=== PATIENT | female | born 1960 | race Caucasian/White ===

== ENCOUNTER 2021-03-20 15:38 | Inpatient (IN) | payer OTHER ==
[~2021-03-20] VITALS: Ht 162.6 cm; Wt 62.0 kg
--- NOTE | 2021-03-20 15:49 | NUR ---
PT C/O OF GENERALIZED WEAKNESS FOR PAST MONTH AND RECENTLY BECAME INCONTINENT. PT HAD UTI 3 WEEKS AGO AND NON COMPLIANT WITH MEDICATIONS. PT POOR HISTORIAN, AND TAKES TIME TO REPLY. EKG AT BEDSIDE. ATTACHED TO MONOTORS. NADN. A&0X4. BREATHING EVEN AND UNLABORED. BED IN LOW, RAILS ENGAGED. CALL LIGHT ON LAP. TM
--- NOTE | 2021-03-20 16:01 | NUR ---
PT CLEANSED AND CHANGED INTO BREIF. PT CAME INTO ER WITH URINATED UNDERWEAR.
--- NOTE | 2021-03-20 16:07 | NUR ---
PT AND FAMILY CAME IN. PT STATES PT HAS NOT BEEN EATING AND VOMITS AFTER EACH MEAL. PT STATES PT HAS NOT VOMITTING IN 5 DAYS BUT IS BARELY EATING AND ABLE TO HANDLE SOFT FOODS AGAIN. PT APPEARS WEAK, HAS TROUBLE KEEPING LEGS IN AIR.
[2021-03-20 16:28] LABS: BASOPHILS % (AUTO) 0 % (0-1); EOSINOPHILS % (AUTO) 0 % (1-7); LYMPHOCYTES % (AUTO) 28 % (22-44); MEAN CORPUSCULAR HEMOGLOBIN 27.7 pg (27.0-34.8); MEAN CORPUSCULAR HGB CONC 33.9 g/dL (32.4-35.8); MEAN PLATELET VOLUME 9.9 fL (7.4-10.4); MONOCYTES % (AUTO) 19 % (2-9); NEUTROPHILS % (AUTO) 53 % (42-75); PLATELET COUNT 119 x10^3/uL (130-400); RED BLOOD COUNT 5.78 x10^6/uL (3.82-5.3); RED CELL DISTRIBUTION WIDTH 15.8 % (9.6-15.2)
[2021-03-20] MEDS ORDERED: SODIUM CHLORIDE FLUSH 10ML SYR IVF ONE (16:30)
[2021-03-20] MEDS ORDERED: SODIUM CHLORIDE 0.9% 1,000ML IVBOLUS ONE (16:30)
[2021-03-20 16:37] LABS: ALANINE AMINOTRANSFERASE 37 U/L (12-78); ALBUMIN 3.7 g/dL (3.4-5.0); ANION GAP 13 mmol/L (5-15); CALCIUM 10.1 mg/dL (8.5-10.1); CHLORIDE 99 mmol/L (98-107); CREATININE 0.88 mg/dL (0.55-1.02)
[2021-03-20 16:40] LABS: ALKALINE PHOSPHATASE 85 U/L (45-117); TOTAL PROTEIN 8.1 g/dL (6.4-8.2)
[2021-03-20 17:12] LABS: MICROSCOPIC AUTO
[2021-03-20] MEDS ORDERED: POTASSIUM CHLORIDE 20 MEQ PACKET ONE (17:20)
[2021-03-20] MEDS ORDERED: MAGNESIUM SULFATE 1 GM in SODIUM CHLORIDE 0.9% 50 ML IV ONE (17:30)
[2021-03-20] MEDS ORDERED: POTASSIUM CHLORIDE 20 MEQ PACKET PO ONE (17:30)
[2021-03-20] MEDS ORDERED: NS + 40MEQ KCL 1,000 ML IV ONE (18:02)
[2021-03-20] MEDS ORDERED: ONDANSETRON ODT 4 MG PO PRN (18:30)
[2021-03-20] MEDS ORDERED: MAGNESIUM SULFATE/D5W 100 ML IVPB ONE (18:30)
[2021-03-20] MEDS ORDERED: ONDANSETRON 2MG/ML, 2ML IVPush PRN (18:30)
[2021-03-20] MEDS ORDERED: KETOROLAC 30 MG/1 ML IM PRN (18:30)
[2021-03-20] MEDS ORDERED: POTASSIUM CHLORIDE 40 MEQ in SODIUM CHLORIDE 0.9% 1,000 ML IV ONE (18:30)
[2021-03-20] MEDS ORDERED: SODIUM CHLORIDE FLUSH 10ML SYR IVF PRN (18:30)
--- NOTE | 2021-03-20 18:42 | NUR ---
gave eport to presley rothman
[2021-03-20] MEDS ORDERED: LISI-167 PO (18:46)
[2021-03-20] MEDS ORDERED: CETI10CA PO (18:46)
[2021-03-20] MEDS: ENOXAPARIN 40 MG/0.4 ML SQ SCH (22:04)
[2021-03-20 22:22] VITALS: BP 116/84
[2021-03-20 22:30] VITALS: BP 115/81
[2021-03-21 01:30] VITALS: BP 152/86
[2021-03-21 01:35] VITALS: BP 165/83
[2021-03-21 05:41] LABS: MICROSCOPIC NOT IND
[2021-03-21 05:59] LABS: ALANINE AMINOTRANSFERASE 28 U/L (12-78); ALBUMIN 3.3 g/dL (3.4-5.0); ANION GAP 5 mmol/L (5-15); BASOPHILS % (AUTO) 0 % (0-1); CALCIUM 9.2 mg/dL (8.5-10.1); CHLORIDE 109 mmol/L (98-107); CREATININE 0.59 mg/dL (0.55-1.02); EOSINOPHILS % (AUTO) 0 % (1-7); LYMPHOCYTES % (AUTO) 33 % (22-44); MEAN CORPUSCULAR HEMOGLOBIN 27.4 pg (27.0-34.8); MEAN CORPUSCULAR HGB CONC 33.2 g/dL (32.4-35.8); MEAN PLATELET VOLUME 10.9 fL (7.4-10.4); MONOCYTES % (AUTO) 14 % (2-9); NEUTROPHILS % (AUTO) 53 % (42-75); PLATELET COUNT 106 x10^3/uL (130-400); RED BLOOD COUNT 5.09 x10^6/uL (3.82-5.3); RED CELL DISTRIBUTION WIDTH 15.9 % (9.6-15.2)
[2021-03-21 06:01] LABS: ALKALINE PHOSPHATASE 74 U/L (45-117); TOTAL PROTEIN 7.1 g/dL (6.4-8.2)
[2021-03-21 07:31] VITALS: BP 132/64
[2021-03-21] MEDS ORDERED: POTASSIUM PHOSPHATE 44 MEQ in SODIUM CHLORIDE 0.9% 500 ML IV ONE (09:00)
[2021-03-21] MEDS ORDERED: ZINC SULFATE 220 MG CAPSULE PO SCH (09:00)
[2021-03-21] MEDS ORDERED: CYANOCOBALAMIN 1,000 MCG/ML, 1ML IM ONE (09:00)
[2021-03-21] MEDS: MULTIVITS,STRESS FORMULA 1 TABLET PO SCH (11:16)
[2021-03-21] MEDS: ZINC SULFATE 220 MG CAPSULE PO SCH (11:17)
[2021-03-21 13:50] VITALS: BP 119/85
[2021-03-21] MEDS: ASCORBIC ACID 500 MG TABLET PO SCH (17:00)
[2021-03-21] MEDS: ENOXAPARIN 40 MG/0.4 ML SQ SCH (18:28)
[2021-03-21 19:24] LABS: HCT (SEDRATE) 43.6 % (34.6-47.8)
[2021-03-21 19:45] LABS: C-REACTIVE PROTEIN, QUANT 5.7 mg/dL (0.02-0.49); FREE T4 (FREE THYROXINE) 1.21 ng/dL (0.76-1.46)
[2021-03-21 19:55] VITALS: BP 116/79
[2021-03-22 02:52] VITALS: BP 122/82
[2021-03-22 06:06] LABS: BASOPHILS % (AUTO) 0 % (0-1); EOSINOPHILS % (AUTO) 0 % (1-7); LYMPHOCYTES % (AUTO) 28 % (22-44); MEAN CORPUSCULAR HEMOGLOBIN 27.9 pg (27.0-34.8); MEAN CORPUSCULAR HGB CONC 33.5 g/dL (32.4-35.8); MEAN PLATELET VOLUME 10.2 fL (7.4-10.4); MONOCYTES % (AUTO) 16 % (2-9); NEUTROPHILS % (AUTO) 57 % (42-75); RED BLOOD COUNT 5.13 x10^6/uL (3.82-5.3); RED CELL DISTRIBUTION WIDTH 15.6 % (9.6-15.2)
[2021-03-22 06:15] LABS: ALBUMIN 3.1 g/dL (3.4-5.0); ANION GAP 8 mmol/L (5-15); CALCIUM 9.6 mg/dL (8.5-10.1); CHLORIDE 110 mmol/L (98-107)
[2021-03-22 06:16] LABS: CREATININE 0.49 mg/dL (0.55-1.02)
[2021-03-22 07:01] VITALS: BP 133/86
[2021-03-22 07:04] LABS: PLATELET COUNT 111 x10^3/uL (130-400)
[2021-03-22] MEDS: MULTIVITS,STRESS FORMULA 1 TABLET PO SCH (08:22)
[2021-03-22] MEDS: ASCORBIC ACID 500 MG TABLET PO SCH ×2 (08:22→16:55)
[2021-03-22] MEDS: ZINC SULFATE 220 MG CAPSULE PO SCH (08:23)
[2021-03-22] MEDS: PANTOPRAZOLE 40MG TABLET PO SCH ×3 (12:18→20:37)
[2021-03-22 13:01] VITALS: BP 118/68
[2021-03-22] MEDS: ENOXAPARIN 40 MG/0.4 ML SQ SCH (16:55)
[2021-03-22 18:46] VITALS: BP 171/73
[2021-03-23 01:24] VITALS: BP 130/78
[2021-03-23 05:23] LABS: BASOPHILS % (AUTO) 0 % (0-1); EOSINOPHILS % (AUTO) 0 % (1-7); LYMPHOCYTES % (AUTO) 32 % (22-44); MEAN CORPUSCULAR HEMOGLOBIN 28.2 pg (27.0-34.8); MEAN CORPUSCULAR HGB CONC 33.7 g/dL (32.4-35.8); MEAN PLATELET VOLUME 10.8 fL (7.4-10.4); MONOCYTES % (AUTO) 13 % (2-9); NEUTROPHILS % (AUTO) 55 % (42-75); PLATELET COUNT 92 x10^3/uL (130-400); RED BLOOD COUNT 4.82 x10^6/uL (3.82-5.3); RED CELL DISTRIBUTION WIDTH 16.1 % (9.6-15.2)
[2021-03-23 05:24] LABS: CALCIUM 9.3 mg/dL (8.5-10.1); CHLORIDE 112 mmol/L (98-107)
[2021-03-23 05:31] LABS: ALANINE AMINOTRANSFERASE 35 U/L (12-78); ALKALINE PHOSPHATASE 72 U/L (45-117); ANION GAP 6 mmol/L (5-15); BILIRUBIN,TOTAL 0.8 mg/dL (0.2-1.0); CREATININE 0.46 mg/dL (0.55-1.02); TOTAL PROTEIN 6.6 g/dL (6.4-8.2)
[2021-03-23 09:00] VITALS: BP 111/77
[2021-03-23] MEDS: PANTOPRAZOLE 40MG TABLET PO SCH ×2 (09:08→21:32)
[2021-03-23] MEDS: ZINC SULFATE 220 MG CAPSULE PO SCH (09:08)
[2021-03-23] MEDS: ASCORBIC ACID 500 MG TABLET PO SCH ×2 (09:08→18:17)
[2021-03-23] MEDS: MULTIVITS,STRESS FORMULA 1 TABLET PO SCH (09:10)
[2021-03-23 14:31] VITALS: BP 109/65
[2021-03-23] MEDS: ACETAMINOPHEN 325 MG TABLET PO PRN (15:09)
[2021-03-23] MEDS: ASPIRIN 81 MG TABLET EC PO SCH (15:34)
[2021-03-23] MEDS: CLOPIDOGREL 75 MG TABLET PO SCH (15:34)
[2021-03-23] MEDS: ENOXAPARIN 40 MG/0.4 ML SQ SCH (18:16)
[2021-03-23 19:28] VITALS: BP 113/68
[2021-03-23] MEDS: ATORVASTATIN 80 MG TABLET PO SCH (21:32)
[2021-03-24 00:49] VITALS: BP 108/62
[2021-03-24] MEDS: ASPIRIN 81 MG TABLET EC PO SCH (06:19)
[2021-03-24 07:03] VITALS: BP 134/83
[2021-03-24] MEDS: CLOPIDOGREL 75 MG TABLET PO SCH (09:41)
[2021-03-24] MEDS: ZINC SULFATE 220 MG CAPSULE PO SCH (09:41)
[2021-03-24] MEDS: PANTOPRAZOLE 40MG TABLET PO SCH ×2 (09:42→20:48)
[2021-03-24] MEDS: MULTIVITS,STRESS FORMULA 1 TABLET PO SCH (09:42)
[2021-03-24] MEDS: ASCORBIC ACID 500 MG TABLET PO SCH ×2 (09:42→17:00)
[2021-03-24] MEDS ORDERED: ACETAMINOPHEN 650 MG/20.3 ML UDC PO PRN ×2 (12:00)
[2021-03-24 12:48] VITALS: BP 134/83
[2021-03-24] MEDS: morphine SULFATE 10 MG/ML, 1ML IVPush PRN (14:44)
[2021-03-24] MEDS: ENOXAPARIN 40 MG/0.4 ML SQ SCH (17:56)
[2021-03-24 20:24] VITALS: BP 118/75
[2021-03-24] MEDS: ATORVASTATIN 80 MG TABLET PO SCH (20:48)
[2021-03-24] MEDS: MELATONIN 5 MG TABLET PO PRN (20:48)
[2021-03-25 02:54] VITALS: BP 117/77
[2021-03-25] MEDS: ASPIRIN 81 MG TABLET EC PO SCH (06:18)
[2021-03-25 08:47] VITALS: BP 107/74
[2021-03-25] MEDS: CLOPIDOGREL 75 MG TABLET PO SCH (08:51)
[2021-03-25] MEDS: ZINC SULFATE 220 MG CAPSULE PO SCH (08:51)
[2021-03-25] MEDS: ASCORBIC ACID 500 MG TABLET PO SCH ×2 (08:51→18:25)
[2021-03-25] MEDS: MULTIVITS,STRESS FORMULA 1 TABLET PO SCH (08:52)
[2021-03-25] MEDS: PANTOPRAZOLE 40MG TABLET PO SCH ×2 (08:52→20:37)
[2021-03-25 12:32] VITALS: BP 132/86
[2021-03-25] MEDS: ACETAMINOPHEN 325 MG TABLET PO PRN ×2 (14:42→22:52)
[2021-03-25] MEDS: ENOXAPARIN 40 MG/0.4 ML SQ SCH (18:24)
[2021-03-25] MEDS: MELATONIN 5 MG TABLET PO PRN (20:37)
[2021-03-25] MEDS: ATORVASTATIN 80 MG TABLET PO SCH (20:37)
[2021-03-25 20:39] VITALS: BP 105/72
[2021-03-26 01:04] VITALS: BP 108/75
[2021-03-26] MEDS: ASPIRIN 81 MG TABLET EC PO SCH (05:09)
[2021-03-26] MEDS: ACETAMINOPHEN 325 MG TABLET PO PRN (05:09)
[2021-03-26] MEDS: MULTIVITS,STRESS FORMULA 1 TABLET PO SCH (09:08)
[2021-03-26] MEDS: CLOPIDOGREL 75 MG TABLET PO SCH (09:08)
[2021-03-26] MEDS: ASCORBIC ACID 500 MG TABLET PO SCH ×2 (09:09→17:17)
[2021-03-26] MEDS: ZINC SULFATE 220 MG CAPSULE PO SCH (09:09)
[2021-03-26] MEDS: PANTOPRAZOLE 40MG TABLET PO SCH ×2 (09:09→21:07)
[2021-03-26 09:28] VITALS: BP 110/67
[2021-03-26] MEDS ORDERED: BISACODYL 10 MG SUPP PR PRN (10:30)
[2021-03-26 15:24] VITALS: BP 119/70
[2021-03-26] MEDS: ENOXAPARIN 40 MG/0.4 ML SQ SCH (18:13)
[2021-03-26] MEDS: ATORVASTATIN 80 MG TABLET PO SCH (21:08)
[2021-03-26] MEDS: MELATONIN 5 MG TABLET PO PRN (21:08)
[2021-03-26 21:09] VITALS: BP 104/71
[2021-03-26] MEDS ORDERED: OMNIPAQUE 350 MG/ML, 100ML BOTTLE ONE (22:59)
[2021-03-27 03:00] VITALS: BP 78/56
[2021-03-27] MEDS: ASPIRIN 81 MG TABLET EC PO SCH (06:06)
[2021-03-27 07:45] VITALS: BP 91/66
[2021-03-27] MEDS: CLOPIDOGREL 75 MG TABLET PO SCH (09:15)
[2021-03-27] MEDS: ZINC SULFATE 220 MG CAPSULE PO SCH (09:15)
[2021-03-27] MEDS: MULTIVITS,STRESS FORMULA 1 TABLET PO SCH (09:15)
[2021-03-27] MEDS: ASCORBIC ACID 500 MG TABLET PO SCH ×2 (09:15→17:00)
[2021-03-27] MEDS: PANTOPRAZOLE 40MG TABLET PO SCH (09:15)
[2021-03-27 12:27] VITALS: BP 86/61
[2021-03-27] MEDS ORDERED: SODIUM CHLORIDE 0.9% 1,000ML IVBOLUS ONE (13:00)
[2021-03-27 13:08] LABS: BASOPHILS % (AUTO) 0 % (0-1); EOSINOPHILS % (AUTO) 0 % (1-7); LYMPHOCYTES % (AUTO) 17 % (22-44); MEAN CORPUSCULAR HEMOGLOBIN 27.5 pg (27.0-34.8); MEAN CORPUSCULAR HGB CONC 33.5 g/dL (32.4-35.8); MEAN PLATELET VOLUME 9.9 fL (7.4-10.4); MONOCYTES % (AUTO) 19 % (2-9); NEUTROPHILS % (AUTO) 64 % (42-75); PLATELET COUNT 130 x10^3/uL (130-400); RED BLOOD COUNT 4.44 x10^6/uL (3.82-5.3); RED CELL DISTRIBUTION WIDTH 16.1 % (9.6-15.2)
[2021-03-27 13:16] LABS: ANION GAP 8 mmol/L (5-15); CALCIUM 8.6 mg/dL (8.5-10.1); CHLORIDE 110 mmol/L (98-107); CREATININE 0.37 mg/dL (0.55-1.02)
[2021-03-27 13:17] LABS: ALANINE AMINOTRANSFERASE 58 U/L (12-78)
[2021-03-27 13:19] LABS: ALKALINE PHOSPHATASE 87 U/L (45-117); BILIRUBIN,TOTAL 0.4 mg/dL (0.2-1.0); TOTAL PROTEIN 6.4 g/dL (6.4-8.2)
[2021-03-27] MEDS: morphine SULFATE 10 MG/ML, 1ML IVPush PRN (14:28)
[2021-03-27] MEDS ORDERED: MAGNESIUM SULFATE PMX 2GM/50ML 50 ML IV ONE (14:30)
[2021-03-27] MEDS ORDERED: POTASSIUM CHLORIDE 20 MEQ TAB.ER.PRT PO ONE (14:30)
[2021-03-27 16:14] VITALS: BP 110/64
[2021-03-27] MEDS ORDERED: ASPI81TA45 PO (16:19)
[2021-03-27] MEDS ORDERED: CLOP75TA PO (16:19)
[2021-03-27] MEDS ORDERED: PANT40TA6 PO (16:19)
[2021-03-27] MEDS ORDERED: ATOR-2 PO (16:19)
[2021-03-27] MEDS ORDERED: POTA20TA89 PO (16:20)
[2021-03-27] MEDS: ENOXAPARIN 40 MG/0.4 ML SQ SCH (18:30)
[2021-03-27 18:45] VITALS: BP 108/68
== END 2021-03-27 19:30 | DRG 64 ==
LOC: ED 16:00 → SUATTDRO 17:33 → 4WST 17:36
PROVIDERS: ADMIT Student in an Organized Health Care Education/Training Program; ATTEND Hospitalist
PROC: 0T9B70Z Drainage of Bladder with Drainage Device, Via Natural or Artificial Opening (ICD-10-PCS; principal; 2021-03-20)
DX: I63.81 Other cerebral infarction due to occlusion or stenosis of small artery (principal); G92 Toxic encephalopathy; E46 Unspecified protein-calorie malnutrition; Z20.822 Contact with and (suspected) exposure to COVID-19; R62.7 Adult failure to thrive; E87.6 Hypokalemia; F12.90 Cannabis use, unspecified, uncomplicated; H53.2 Diplopia; H55.09 Other forms of nystagmus; R29.703 NIHSS score 3; I10 Essential (primary) hypertension; Z79.02 Long term (current) use of antithrombotics/antiplatelets; Z87.891 Personal history of nicotine dependence; Z90.49 Acquired absence of other specified parts of digestive tract; Z68.23 Body mass index [BMI] 23.0-23.9, adult; Z88.0 Allergy status to penicillin; Z88.1 Allergy status to other antibiotic agents; Z91.018 Allergy to other foods; Z79.899 Other long term (current) drug therapy
CPT/HCPCS: 36415; 70450; 70496; 70498; 70551; 74018; 74021; 74220; 80053; 80069; 81001; 81003; 82140; 82390; 82525; 82607; 83690; 83735; 84100; 84439; 84443; 84481; 84630; 85025; 85651; 86140; 87086; 87635; 93306; 93356; G0378; J1650; J1885; J3475; J3480; Q9967; 92523-GN; J2270; J3420; J7030; J7040